=== PATIENT | male | born 1955 | race Hispanic/Latino ===

== ENCOUNTER 2017-10-25 22:42 | Emergency (ER) | payer OTHER ==
[2017-10-25 22:44] VITALS: BMI 21.5
[2017-10-25 22:51] VITALS: BP 128/79; PULSE 83; RESP 20; TEMP 98.1; O2SAT 99
--- NOTE | 2017-10-25 23:44 | C.PDOC ---
History Of Present Illness 62-year-old male presents to the ED for evaluation of chronic back pain. Patient states he has been wearing a lifting belt. Patient is on extensive pain and narcotic regimen for chronic lower back pain. Patient is already taking Percocet. He was seen standing, sitting and even crawling under the ED bed with no distress. Patient denies any new trauma/injuries, extremity numbness/ weakness. Time Seen by Provider: 10/25/17 23:34 Chief Complaint (Nursing): Back Pain History Per: Patient History/Exam Limitations: no limitations Onset/Duration Of Symptoms: Hrs Current Symptoms Are (Timing): Still Present Quality Of Discomfort: "Pain" Previous Symptoms: Back Pain Associated Symptoms: denies: New Weakness, New Numbness Additional History Per: Patient Past Medical History Reviewed: Historical Data, Nursing Documentation, Vital Signs Vital Signs: Last Vital Signs Temp 98.1 F 10/25/17 22:47 Pulse 83 10/25/17 22:47 Resp 20 10/25/17 22:47 BP 128/79 10/25/17 22:47 Pulse Ox 99 10/25/17 23:51 - Medical History PMH: HTN Denies: Chronic Kidney Disease Surgical History: No Surg Hx Family History: States: Unknown Family Hx - Social History Hx Alcohol Use: No Hx Substance Use: No Review Of Systems Musculoskeletal: Positive for: Back Pain Neurological: Negative for: Weakness, Numbness Physical Exam - Physical Exam Appears: Non-toxic, No Acute Distress Skin: Normal Color, Warm, Dry Head: Atraumatic, Normacephalic Eye(s): bilateral: Other (+ pupilary miosis) Oral Mucosa: Moist Neck: Supple Chest: Symmetrical, No Deformity, No Tenderness Cardiovascular: Rhythm Regular Respiratory: Normal Breath Sounds, No Accessory Muscle Use Back: Paraspinal Tenderness (minor, right-sided lumbar and thoracic ), No Straight Leg Raising Extremity: Normal ROM (to bilateral lower extremities ), Capillary Refill (less than 2 seconds ) Neurological/Psych: Oriented x3, Normal Speech, Normal Cognition Gait: Steady ED Course And Treatment O2 Sat by Pulse Oximetry: 99 (on RA) Pulse Ox Interpretation: Normal Progress Note: Motrin PO given. Medical Decision Making Medical Decision Making: minor lower R paraspinal lumbar/thoracic muscle strain no spinal involvement NSAIDS/ice trialed and educated. already has extensive chronic pain regimen and taking Percocet Disposition Doctor Will See Patient In The: Office Counseled Patient/Family Regarding: Studies Performed, Diagnosis - Disposition Referrals: Matt Rachel MD [Medical Doctor] - Disposition: HOME/ ROUTINE Disposition Time: 23:44 Condition: GOOD Additional Instructions: [place] 1/2 hora por hora, nada caliente ibuprofeno/Advil 400-600 mg cada 6 horas aarbella necessario No pone nada caliente encima de wild espalda- se hace mas inflammada Sigue con wild medico arabella necessario Instructions: Muscle Strain (DC) Forms: [employer] (Slovak) Print Language: ROMANSH - Clinical Impression Clinical Impression: Low back strain, Chronic pain - Scribe Statement The provider has reviewed the documentation as recorded by the Scribe (Nadia Johnson) Provider Attestation: All medical record entries made by the Scribe were at my direction and personally dictated by me. I have reviewed the chart and agree that the record accurately reflects my personal performance of the history, physical exam, medical decision making, and the department course for this patient. I have also personally directed, reviewed, and agree with the discharge instructions and disposition.
== END 2017-10-25 23:58 | disposition home or self-care (01) ==
LOC: C.ER 22:42
DX: S39.012A Strain of muscle, fascia and tendon of lower back, initial encounter (principal); X58.XXXA Exposure to other specified factors, initial encounter; G89.29 Other chronic pain; I10 Essential (primary) hypertension